=== PATIENT | female | born 1985 | race Caucasian/White ===

== ENCOUNTER 2021-07-10 11:30 | Inpatient (IN) | payer OTHER ==
[~2021-07-10] VITALS: Ht 170.2 cm; Wt 86.2 kg
[2021-07-10] MEDS ORDERED: ATORVASTATIN PO (15:45)
[2021-07-10] MEDS ORDERED: DAILY VALUE1 EACH PO (15:46)
[2021-07-10] MEDS ORDERED: NASAL MIST126 ML (15:56)
[2021-07-10] MEDS ORDERED: IRON PO (15:56)
[2021-07-10] MEDS ORDERED: VITAMIN C100 MG PO (15:56)
[2021-07-10] MEDS ORDERED: VITAMIN D PO (15:56)
[2021-07-14] MEDS ORDERED: Tylenol #3 PO (09:23)
[2021-07-14] MEDS ORDERED: NAPR500T14 PO (09:23)
== END 2021-07-14 12:39 | disposition home or self-care (01) | DRG 743 ==
LOC: O/R 07-13 08:45 → SURH 07-13 11:30 → SURG 07-13 20:02
PROVIDERS: ADMIT Obstetrics & Gynecology; ATTEND Obstetrics & Gynecology
PROC: 0UQF7ZZ Repair Cul-de-sac, Via Natural or Artificial Opening (ICD-10-PCS; 2021-07-13)
PROC: 0USG7ZZ Reposition Vagina, Via Natural or Artificial Opening (ICD-10-PCS; 2021-07-13)
PROC: 0TJB8ZZ Inspection of Bladder, Via Natural or Artificial Opening Endoscopic (ICD-10-PCS; 2021-07-13)
PROC: 0UT97ZZ Resection of Uterus, Via Natural or Artificial Opening (ICD-10-PCS; principal; 2021-07-13 14:45)
DX: D25.1 Intramural leiomyoma of uterus (principal); N92.0 Excessive and frequent menstruation with regular cycle; N94.6 Dysmenorrhea, unspecified; N81.11 Cystocele, midline